=== PATIENT | female | born 1990 | race Caucasian/White ===

== ENCOUNTER 2021-07-24 15:31 | Emergency (ER) | payer BC, SELFPAY ==
--- NOTE | 2021-07-24 16:05 | USR_ITS ---
PROCEDURE INFORMATION: Exam: US Duplex Left Lower Extremity Veins, Limited Exam date and time: 07/24/2021 4:15 PM Age: 30 years old Clinical indication: Pain; Leg, lower; Left; Patient HX: Bariatric surgery this week and this first day out walking; Additional info: Pain/swelling TECHNIQUE: Imaging protocol: Real-time Duplex ultrasound of the Left Lower Extremity with 2-D martinez scale, color Doppler flow and spectral waveform analysis with image documentation. Limited exam focused on the left lower extremity veins. [place] [facility] [place] 2:35 PM FINDINGS: Left deep veins: Unremarkable. The common femoral, femoral, proximal profunda femoral and popliteal veins are patent without thrombus. Normal Doppler waveforms. Normal compressibility and/or augmentation response. Left superficial veins: Unremarkable. Saphenofemoral junction is patent without thrombus. Soft tissues: Unremarkable. US/[place] [id number] IMPRESSION: No evidence of deep vein thrombosis.
[2021-07-24 16:26] VITALS: BP 125/85; PULSE 103; RESP 18; TEMP 36.7; O2SAT 97; BMI 34.2
--- NOTE | 2021-07-24 17:16 | W.ED.EXTPRO ---
HPI - Extremity Problem General: Chief complaint: Extremity Injury, Lower Stated complaint: poss bloodclot in left leg Time Seen by Provider: 07/24/21 16:41 History of Present Illness: Patient complains about left calf pain that started today. Denies any known injury. Denies any swelling fever chills or recent illness. Associated symptoms: Deny chest pain, fever(s) or rash Review of Systems Const: Denies: fever(s), chills or body aches Eyes: Denies: eye discomfort ENMT: Denies: throat pain Card: Denies: chest pain Resp: Denies: dyspnea GI: Denies: abdominal pain, nausea or vomiting Musc: Reports: extremity pain (Left calf started hurting today) Skin/Breast: Denies: rash Neuro: Denies: headache(s) Psych: Denies: depression or suicidal ideation PFSH ED PFSH: Medical History Anxiety Diabetes Family history of ischemic heart disease and other diseases of the circulatory system GERD (gastroesophageal reflux disease) Hypertension Family History Other CAD (coronary artery disease) Hyperlipidemia Hypertension Myocardial infarction Stroke Social History Smoking and tobacco status: never smoked Alcohol intake: current Alcohol intake frequency: holidays/special occasions only Female Reproductive History: Date of last menstrual period: 06/26/21 Physical Exam Const: COMMON NORMALS: no acute distress, patient oriented x3 and alert HENMT: COMMON NORMALS: normocephalic HEAD & SCALP: normocephalic Eye: COMMON NORMALS: EOMs intact bilaterally Neck/C-Spine: COMMON NORMALS: no JVD Resp: COMMON NORMALS: normal respiratory effort and No use of accessory muscles Cardio: COMMON NORMALS: no JVD GI: INSPECTION: Yes normal to inspection Extremity: COMMON NORMALS: normal to inspection and full ROM LEFT LOWER EXTREMITY: Yes lower leg (Redness or swelling, negative Homans, mild tenderness gastrocnemius) Left lower leg: Yes neurovascular exam (Intact) Neuro: COMMON NORMALS: patient oriented x3 SENSORIUM/ORIENTATION: Yes alert Psych: COMMON NORMALS: mental status grossly normal Skin: COMMON NORMALS: no rashes or lesions noted GENERAL SKIN EXAM: no rashes or lesions noted Course Vital Signs: Vital signs: Vital Signs Temperature 98.1 F 07/24/21 16:26 Pulse Rate 67 07/24/21 17:30 Respiratory Rate 20 H 07/24/21 17:30 Blood Pressure 112/74 07/24/21 17:30 Pulse Oximetry 97 07/24/21 16:26 MDM - Extremity (Nontraumatic) Medical Decision Making Left calf muscle strain Lab Data Radiology Impressions Venous Duplex 07/24/21 16:05 IMPRESSION: No evidence of deep vein thrombosis. Discharge Plan Discharge Patient Disposition: Home Clinical Impression: Pain of left calf Condition: Stable Prescriptions: No Action losartan-hydrochlorothiazide 100-25 mg tablet 1 tab PO DAILY 0RF carvedilol phosphate 40 mg capsule, ER multiphase 24 hr 40 mg PO DAILY 0RF Label Comments: TAKEN WITH 20 MG CAPSULE FOR TOTAL OF 60 MG DAILY Rx Instructions: must administer with a meal/food carvedilol phosphate 20 mg capsule, ER multiphase 24 hr 20 mg PO DAILY 0RF Label Comments: TAKEN WITH 40 MG CAPSULE FOR TOTAL OF 60 MG DAILY Rx Instructions: must administer with a meal/food escitalopram oxalate [Lexapro] 10 mg tablet 10 mg PO DAILY 0RF metformin 500 mg tablet 1,000 mg PO BID 0RF Ozempic 0.25 mg or 0.5 mg(2 mg/1.5 mL) pen injector SUBCUT 0RF atorvastatin 20 mg tablet 20 mg PO DAILY Qty: 90 2RF Discharge Orders: Discharge ED (Routine); Ordered 07/24/21 Ordered By: Jeremiah Guerra Referrals: Safia Michele FNP [Primary Care Provider] - Discharge Diet: Usual diet Discharge Activity: Resume usual activity Activity Restrictions/Additional Instructions: Follow-up your primary care return here if any worsening problems. Apply moist heat to the calf as needed. Can take Tylenol and/or ibuprofen for discomfort. 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
[2021-07-24 17:30] VITALS: BP 112/74; PULSE 67; RESP 20
== END 2021-07-24 17:32 | disposition home or self-care (01) ==
PROVIDERS: Emergency Provider Nurse Practitioner Family; PCP Nurse Practitioner Family
DX: M79.662 Pain in left lower leg (principal); Z79.84 Long term (current) use of oral hypoglycemic drugs
CPT/HCPCS: 93971; 99282

== ENCOUNTER 2022-01-28 16:15 | Outpatient (CLI) | payer BC, SELFPAY | END 2022-01-28 16:16 | disposition home or self-care (01) | LOC: SPT 16:16 | PROVIDERS: PCP Nurse Practitioner Family; Visit Provider Podiatrist Foot & Ankle Surgery | DX: Z46.89 Encounter for fitting and adjustment of other specified devices (principal); S82.892D Other fracture of left lower leg, subsequent encounter for closed fracture with routine healing; X58.XXXD Exposure to other specified factors, subsequent encounter | CPT/HCPCS: 97760; L4361 ==

== ENCOUNTER 2022-02-01 10:21 | Day surgery (SDC) | payer BC, SELFPAY ==
[2022-01-29 11:20] VITALS: BMI 28.3
[2022-02-01] VITALS (9 sets, daily range): BP systolic 116–187; BP diastolic 78–91; PULSE 80–108; RESP 15–18; TEMP 36.3–37.1; O2SAT 98–100
--- NOTE | 2022-02-01 | XR_ITS ---
WS: [id number] INTRAOPERATIVE TECHNIQUE: 2 Spot fluoroscopic images for intraoperative purposes. FLUOROSCOPY TIME: ? seconds CLINICAL INFORMATION: orif of ankle COMPARISON: None. FINDINGS: Screw fixation across the medial malleolus. Hardware appears in good position. XR/XR ankle LT 2V [id number] IMPRESSION: Images obtained for intraoperative purposes.
--- NOTE | 2022-02-01 | SCC_ITS ---
Procedure done: Open reduction internal fixation left medial malleolus fracture. CPT code 58265. 11 seconds of fluoroscopic guidance, for a cumulative dose of 0.346 mGy, was provided to Dr. Ramirez by the radiology department. C-arm images of the left ankle were saved for the patient's permanent record. [facility]
[2022-02-01 11:14] LABS: Glucose Point of Care 95 mg/dL (70-110)
[2022-02-01] MEDS: sodium chloride 0.9% 1,000 ML 30 ML IV (11:30)
--- NOTE | 2022-02-01 11:41 | ANES.PREANE2 ---
Pre-Anesthetic Assessment Height/Weight: Height 1.65 m Weight 77.111 kg Temp Pulse Resp BP Pulse Ox O2 Del Method 98.7 F 80 18 116/83 98 02/01/22 11:25 02/01/22 11:25 02/01/22 11:25 02/01/22 11:25 02/01/22 11:25 02/01/22 11:25 Preop Diagnosis: Left medial malleolus fracture Operation Date: 02/01/22 12:00 Proposed Procedures p 56442 Open reduction internal fixation left medial malleolus S82.52XA(Left) - Lucas Ramirez DPM Familial anesthetic complications: None Was Beta Guicho taken within 24 hours: Yes Was Clonidine taken within 24 hours: N/A Last intake: Intake Last Liquid Date 01/31/22 Last Liquid Time 11: Last Solid Date 01/31/22 Last Solid Time : Social No alcohol and No tobacco Exam alert, oriented x 3, clear to auscultation bilaterally and regular rate & rhythm Airway Mallampati: Class I Dentition: full CV/HEM Hypertension GI Gastroesophageal Reflux Disease s/p gastric bypass Metabolic Diabetes Mellitus improved since weight loss surgery Anesthetic Plan ASA status: 2 Anesthesia: General and Regional (specify below) Risk of > 500 ml blood loss (7ml/kg in children): No Medications/Allergies Home Medications Medication Instructions Recorded Confirmed Last Taken Type carvedilol phosphate 20 mg 20 mg PO DAILY 03/03/20 02/01/22 01/31/22 History capsule,[email or web address] multiphase carvedilol phosphate 40 mg 40 mg PO DAILY 03/03/20 02/01/22 01/31/22 History capsule,[email or web address] multiphase escitalopram oxalate 10 mg tablet 10 mg PO DAILY 03/03/20 02/01/22 01/30/22 History (Lexapro) losartan 100 1 tab PO DAILY 03/03/20 02/01/22 01/30/22 History mg-hydrochlorothiazide 25 mg tablet metformin 500 mg tablet 1,000 mg PO BID 03/03/20 02/01/22 01/31/22 History atorvastatin 20 mg tablet 20 mg PO DAILY #90 tabs 08/06/21 02/01/22 01/31/22 Rx CAM boot #1 ea 01/28/22 01/28/22 Unknown Rx mupirocin 2 % topical ointment 1 applic topical BID #15 grams 01/28/22 02/01/22 01/31/22 Rx oxycodone-acetaminophen 5 mg-325 1 tab PO Q4H PRN pain 7 days #20 01/28/22 02/01/22 02/01/22 Rx mg tablet (Percocet) tabs Allergies Allergy/AdvReac Type Severity Reaction Status Date / Time hydromorphone [From Dilaudid] AdvReac ADR-Abdominal Verified 01/29/22 11:19 Pain meperidine [From Demerol] AdvReac ADR-Abdominal Verified 01/29/22 11:19 Pain naproxen AdvReac ADR-Abdominal Verified 01/29/22 11:19 Pain PFSH Anesthesia Medical History Anxiety Diabetes Family history of ischemic heart disease and other diseases of the circulatory system GERD (gastroesophageal reflux disease) Hypertension Family History Other CAD (coronary artery disease) Hyperlipidemia Hypertension Myocardial infarction Stroke Social History Smoking and tobacco status: never smoked Alcohol intake: current Alcohol intake frequency: holidays/special occasions only Female Reproductive History Date of last menstrual period: 06/26/21 Data Anesthesia Cardiac Studies: Cardiac Event Monitor 03/17/20
[2022-02-01 11:42] LABS: OR HCG Qualitative Urine Negative (Negative)
--- NOTE | 2022-02-01 11:57 | W.PM.OPSUD ---
Surgery/Procedure H&P Update DATE OF PROCEDURE: February 01, 2022 DATE H&P PERFORMED: 01/28/22 CHANGES TO PREVIOUS DOCUMENTATION: None PREOP DIAGNOSIS: Left medial malleolus fracture PRIMARY INDICATION FOR PROCEDURE: Left medial malleolus fracture PLANNED PROCEDURE: Operation Date: 02/01/22 12:00 Proposed Procedures p 89048 Open reduction internal fixation left medial malleolus S82.52XA(Left) - Lucas Ramirez DPM
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
[2022-02-01] MEDS: ceFAZolin 2,000 MG in sodium chloride 0.9% (plus) 50 ML 100 MG IV (12:15)
--- NOTE | 2022-02-01 12:33 | ANES.PROC ---
Anesthesia Procedures Procedure/Date: 02/01/22 Nerve Block ^: Nerve Block 1: Main Anesthesia: general anesthesia Time Out Performed: Yes Consent: requested by attending/covering physician, from patient, risks and benefits reviewed and patient agrees to proceed Nerve block location: popliteal (L) Anesthesia monitors applied: pulse oximetry, EKG, BP cuff and oxygen Nerve block position: supine Anesthetic Used: ropivicaine 0.5% (30) and with decadron (4 mg) Ultrasound used to: recognize landmarks Nerve Stimulator Used?: No Interscalene/Femoral BLK: 4 stimuplex 21 g needle used for position and inplane approach, visualize local anesthetic spread and no vascular puncture identified Injection: neg aspiration of heme and paresthesia +/- (parasthesia experienced several times - injection halted, needle repositioned, resumed without parasthesia) Patient Tolerated Procedure: well Complications: none
--- NOTE | 2022-02-01 13:51 | ANE.PACU2 ---
Inpatient post-anesthesia follow up: Airway intact: Yes Vital signs: Temperature 97.3 F Pulse Rate 100 Respiratory Rate 18 Blood Pressure 177/89 Pulse Oximetry 98 Oxygen Delivery Me thod Room Air Oxygen Flow Rate 6 Fraction of Inspir ed Oxygen Hydration adequate: Yes Nausea and vomiting: No Pain level: 1 Mental status: Baseline
[2022-02-01] MEDS: oxyCODONE-APAP 10-325 mg Tablet 1 TAB PO (14:34)
== END 2022-02-01 14:35 | disposition home or self-care (01) ==
PROVIDERS: Anesthesiology; PCP Nurse Practitioner Family; Visit Provider Podiatrist Foot & Ankle Surgery
PROC: (CPT 27766; principal; 2022-02-01 12:00)
DX: S82.52XA Displaced fracture of medial malleolus of left tibia, initial encounter for closed fracture (principal); X58.XXXA Exposure to other specified factors, initial encounter; I10 Essential (primary) hypertension; K21.9 Gastro-esophageal reflux disease without esophagitis; Z98.84 Bariatric surgery status; E11.9 Type 2 diabetes mellitus without complications; F41.9 Anxiety disorder, unspecified; Z79.84 Long term (current) use of oral hypoglycemic drugs
CPT/HCPCS: 27766; 36416; 73600; 76000; 81025; 82962; 84703; C1713; J0690; J1100; J2250; J2405; J2704; J2795; J3010; J3490; J7030

== ENCOUNTER → 2022-02-11 13:47 | Outpatient (BNVA) | payer BC, SELFPAY | PROVIDERS: PCP Nurse Practitioner Family; Visit Provider Podiatrist Foot & Ankle Surgery | DX: S82.892D Other fracture of left lower leg, subsequent encounter for closed fracture with routine healing (principal); S82.52XD Displaced fracture of medial malleolus of left tibia, subsequent encounter for closed fracture with routine healing; X58.XXXD Exposure to other specified factors, subsequent encounter; R20.0 Anesthesia of skin | CPT/HCPCS: 73610 ==

== ENCOUNTER → 2022-03-11 14:36 | Outpatient (BNVA) | payer BC, SELFPAY | PROVIDERS: PCP Nurse Practitioner Family; Visit Provider Student in an Organized Health Care Education/Training Program | DX: S54.00XD Injury of ulnar nerve at forearm level, unspecified arm, subsequent encounter (principal); Z98.890 Other specified postprocedural states; S82.52XD Displaced fracture of medial malleolus of left tibia, subsequent encounter for closed fracture with routine healing; S82.892D Other fracture of left lower leg, subsequent encounter for closed fracture with routine healing; X58.XXXD Exposure to other specified factors, subsequent encounter | CPT/HCPCS: 73030; 73610 ==

== ENCOUNTER → 2022-04-01 13:01 | Outpatient (BNVA) | payer BC, SELFPAY | PROVIDERS: PCP Nurse Practitioner Family; Visit Provider Podiatrist Foot & Ankle Surgery | DX: Z98.890 Other specified postprocedural states (principal); S82.892D Other fracture of left lower leg, subsequent encounter for closed fracture with routine healing; S82.52XD Displaced fracture of medial malleolus of left tibia, subsequent encounter for closed fracture with routine healing; X58.XXXD Exposure to other specified factors, subsequent encounter | CPT/HCPCS: 73610 ==

== ENCOUNTER → 2022-04-15 15:36 | Outpatient (BNVA) | payer BC, SELFPAY | PROVIDERS: PCP Nurse Practitioner Family; Visit Provider Podiatrist Foot & Ankle Surgery | DX: Z98.890 Other specified postprocedural states (principal); S82.892D Other fracture of left lower leg, subsequent encounter for closed fracture with routine healing; S82.52XD Displaced fracture of medial malleolus of left tibia, subsequent encounter for closed fracture with routine healing; X58.XXXD Exposure to other specified factors, subsequent encounter | CPT/HCPCS: 73610 ==

== ENCOUNTER 2022-04-15 16:04 | Outpatient (CLI) | payer BC, SELFPAY | END 2022-04-15 16:05 | disposition home or self-care (01) | LOC: SPT 16:04 | PROVIDERS: PCP Nurse Practitioner Family; Visit Provider Podiatrist Foot & Ankle Surgery | DX: Z47.89 Encounter for other orthopedic aftercare (principal) | CPT/HCPCS: 97760; L1902 ==

== ENCOUNTER → 2022-05-06 15:31 | Outpatient (BNVA) | payer BC, SELFPAY | PROVIDERS: PCP Nurse Practitioner Family; Visit Provider Podiatrist Foot & Ankle Surgery | DX: S82.892D Other fracture of left lower leg, subsequent encounter for closed fracture with routine healing (principal); S82.52XD Displaced fracture of medial malleolus of left tibia, subsequent encounter for closed fracture with routine healing; X58.XXXD Exposure to other specified factors, subsequent encounter | CPT/HCPCS: 73610 ==

== ENCOUNTER → 2022-06-10 14:05 | Outpatient (BNVA) | payer BC, SELFPAY | PROVIDERS: PCP Nurse Practitioner Family; Visit Provider Podiatrist Foot & Ankle Surgery | DX: S82.892A Other fracture of left lower leg, initial encounter for closed fracture (principal); X58.XXXA Exposure to other specified factors, initial encounter | CPT/HCPCS: 73610 ==

== ENCOUNTER 2022-10-29 14:31 | Outpatient (CLI) | payer BC, SELFPAY ==
--- NOTE | 2022-10-29 14:53 | US_ITS ---
WS: [id number] US pelv w/transvag [id number] HISTORY: PELVIC PERINEAL PAIN COMPARISON: 10/02/2018 Uterus: 7.0 cm x 4.8 cm x 4.6 cm. Normal size retroverted uterus. No fibroid or mass identified. Endometrium: 0.6 cm. Normal. Right ovary: 2.5 cm x 1.8 cm x 2.4 cm. Normal size and vascularity, no cystic or solid masses. Small follicles. Left ovary: 3.0 cm x 2.2 cm x 1.6 cm. Normal size and vascularity, no cystic or solid masses. Small f ollicles. Physiologic free fluid in the cul-de-sac. US/US pelv w/transvag [id number] IMPRESSION: Normal pelvic ultrasound.
== END 2022-10-29 14:32 | disposition home or self-care (01) ==
PROVIDERS: PCP Nurse Practitioner Family; Visit Provider Advanced Practice Midwife
DX: R10.2 Pelvic and perineal pain (principal)
CPT/HCPCS: 76830; 76856

== ENCOUNTER 2023-03-23 07:45 | Outpatient (CLI) | payer BC, SELFPAY ==
--- NOTE | 2023-03-23 08:00 | USCV_ITS ---
Jenn Fernandes Age: 32 Gender: F : 1990 Exam Date: 03/23/2023 08:09 Ordering Phys: Ana Rico MD ([email or web address]) Technologist: MARCO [place] [facility] [place]: PVCS, CHEST PAIN BP: 136 / 91 HR: 71 Rhythm: Sinus Technical Quality: Adequate MEASUREMENTS (Male / Female) Normal Values 2D ECHO LVOT Diameter 2.0 cm LV Ejection Fraction MOD 2C 68.5 % LV Ejection Fraction 2C AL 68.9 % LA Diameter 2.5 cm LA Width 2.9 cm LA Height 3.9 cm RA Width 2.2 cm RA Height 3.6 cm Aorta at Sinotubular Diameter 1.6 cm IVC Diameter 1.8 cm M-MODE Aortic Annulus Diameter 3.1 cm LA Ao Ratio MM 0.7 MV E Point Septal Separation 0.7 cm DOPPLER AV Peak Velocity 133.0 cm/s LVOT Peak Velocity 105.0 cm/s AV Area Cont Eq vti 2.4 cm squared AV Area Cont Eq pk 2.4 cm squared MV Peak Velocity 94.0 cm/s MV Area PHT 4.2 cm squared Mitral E to A Ratio 1.5 MV E' Velocity 57.0 cm/s Mitral E to MV E' Ratio 7.2 Mitral E to LV E' Lateral Ratio 6.6 Mitral E to LV E' Septal Ratio 7.9 TR Peak Velocity 135.8 cm/s TR Peak Gradient 7.4 mmHg TR Mean Velocity 109.0 cm/s TR Mean Gradient 5.0 mmHg TR Velocity Time Integral 35.0 cm TV Peak E Velocity 56.0 cm/s Right Atrial Pressure 3.0 mmHg Pulmonary Artery Systolic Pressu 10.4 mmHg PV Peak Velocity 93.0 cm/s RV Acceleration Time 0.1 s RV Ejection Time 0.3 s RV AcT/ET 0.4 FINDINGS Left Ventricle Normal left ventricular size, systolic function and wall thickness, with no regional wall motion abnormalities. Left ventricular ejection fraction is estimated at 65 %. Normal diastolic function. Right Ventricle Normal right ventricular size and systolic function. Right ventricular systolic pressure 10.4 mmHg. Right Atrium Normal right atrial size. Left Atrium Normal left atrial size. Mitral Valve Structurally normal mitral valve. No mitral valve stenosis. No mitral valve regurgitation. Aortic Valve Structurally normal trileaflet aortic valve. No aortic valve stenosis. No aortic valve regurgitation. Tricuspid Valve Structurally normal tricuspid valve. No tricuspid valve stenosis. Trace tricuspid valve regurgitation. Pulmonic Valve Pulmonic valve not well visualized. Pericardium No pericardial effusion. Aorta Normal size aortic root and proximal ascending aorta. IVC Normal IVC dimension with >50% respiratory change of the inferior vena cava. CONCLUSIONS 1. Normal left ventricular size, systolic function and wall thickness, with no regional wall motion abnormalities. Left ventricular ejection fraction is estimated at 65 %. Normal diastolic function. 2. No significant valvular abnormalities. 3. No significant change when compared to study dated 01/03/2015. Ana Rico MD (Electronically Signed) Final Date: 23 March 2023 22:37 S
== END 2023-03-23 07:46 | disposition home or self-care (01) ==
LOC: RAD 07:45
PROVIDERS: PCP Nurse Practitioner Family; Visit Provider Internal Medicine Cardiovascular Disease
DX: Z82.49 Family history of ischemic heart disease and other diseases of the circulatory system (principal); R00.2 Palpitations
CPT/HCPCS: 93306

== ENCOUNTER 2023-12-26 13:34 | Emergency (ER) | payer BC, SELFPAY ==
[2023-12-26 13:42] VITALS: BP 124/86; PULSE 95; RESP 15; TEMP 36.9; O2SAT 99; BMI 24.7
[2023-12-26 16:12] LABS: Basophils # 0.1 10^3/uL (0.0-0.1); Basophils % 0.8 %; Eosinophils # 0.1 10^3/uL (0.0-0.8); Eosinophils % 1.8 %; Hematocrit 45.9 % (36-47); Lymphocytes # 1.8 10^3/uL (0.8-4.8); Lymphocytes % 26.8 %; Mean Corpuscular Hemoglobin 29.8 pg (27-33); Mean Corpuscular Volume 87.8 fl (85-98); Mean Platelet Volume 10.6 fL (7.4-10.4); Monocytes # 0.8 10^3/uL (0.2-0.9); Monocytes % 12.3 %; Neutrophils # 3.79 10^3/uL (1.8-7.7); Neutrophils % 58.1 %; Nucleated Red Blood Cells % 0 %; Platelet Count 322 10^3/cmm (157-399); Red Blood Count 5.23 10^6/uL (3.85-5.65); Red Cell Distribution Width 12.4 % (12.1-15.1); White Blood Count 6.52 10^3/uL (3.29-11.43)
[2023-12-26 16:28] LABS: HCG, Serum Qual Negative (Negative)
[2023-12-26 16:37] LABS: Alanine Aminotransferase 17 U/L (0-33); Albumin Level 4.2 g/dL (3.5-5.2); Alkaline Phosphatase 122 U/L (35-105); Anion Gap 16.9 (5-19); Aspartate Amino Transferase 15 U/L (0-32); Blood Urea Nitrogen 11 mg/dL (6-20); Calcium 9.1 mg/dL (8.5-10.5); Carbon Dioxide 20 mmol/L (22-29); Chloride 107 mmol/L (98-107); Creatinine Clr Calc Pharmacy 126.5077; Globulin 3.4 g/dL (1.3-4.6); Glomerular Filtration Rate 113.8 mL/min (90-130); Glucose 113 mg/dL (65-115); Lipase 20 U/L (13-60); Osmolality Calculated 290 mOsm/kg (285-295); Potassium 3.9 mmol/L (3.5-5.1); Sodium 140 mmol/L (136-145); Total Bilirubin 1.2 mg/dL (0.15-1.2); Total Protein 7.6 g/dL (6.6-8.7)
--- NOTE | 2023-12-26 19:03 | ED_ITS ---
HPI - Nausea/Vomiting/Diarrhea 2 General: Chief complaint: Nausea/Vomiting/Diarrhea Stated complaint: dehydrated Time Seen by Provider: 12/26/23 18:42 History of Present Illness: 33-year-old female presents emergency ro om with diarrhea for several days now. She is also had some nausea. No vomiting. She thinks may be related to stress with a separation from her . She says she feels dehydrated and weak. No abdominal pain. No chest pain. No shortness of breath. No altered mental status. No fevers. Related Data Home Medications Medication Instructions Recorded Confirmed semaglutide 0.25 mg or 0.5 mg (2 mg SUBCUT 07/17/23 10/20/23 mg/3 mL) subcutaneous pen injector (OzempFrankly Chat) metoprolol tartrate 25 mg tablet 25 mg PO BID 10/20/23 10/20/23 Previous Rx's Medication Instructions Recorded CAM boot #1 ea 01/28/22 ASO to the Left #1 ea 04/15/22 amoxicillin 875 mg-potassium 1 tab PO BID 10 days #20 tabs 07/17/23 clavulanate 125 mg tablet fluticasone propionate 50 2 spray intranasal DAILY PRN 07/17/23 mcg/actuation nasal allergy symptoms #16 grams spray,suspension (Flonase Allergy Relief) cephalexin 500 mg capsule 500 mg PO TID 5 days #15 caps 12/26/23 lorazepam 0.5 mg tablet (Ativan) 0.5 mg PO DAILY PRN anxiety #14 12/26/23 tabs ondansetron 8 mg disintegrating 8 mg PO Q6H #14 tabs 12/26/23 tablet Allergies Allergy/AdvReac Type Severity Reaction Status Date / Time hydromorphone [From Dilaudid] AdvReac ADR-Abdominal Verified 10/20/23 10:03 Pain meperidine [From Demerol] AdvReac ADR-Abdominal Verified 10/20/23 10:03 Pain naproxen AdvReac ADR-Abdominal Verified 10/20/23 10:03 Pain Review of Systems 2 Narrative: Constitutional symptoms: Negative except as documented in HPI. Skin symptoms: Negative except as documented in HPI. Eye symptoms: Negative except as documented in HPI. ENMT symptoms: Negative except as documented in HPI. Respiratory symptoms: Negative except as documented in HPI. Cardiovascular symptoms: Negative except as documented in HPI. Gastrointestinal symptoms: Negative except as documented in HPI. Genitourinary symptoms: Negative except as documented in HPI. Musculoskeletal symptoms: Negative except as documented in HPI. Neurologic symptoms: Negative except as documented in HPI. Psychiatric symptoms: Negative except as documented in HPI. Endocrine symptoms: Negative except as documented in HPI. PFSH ED 2 PFSH: Medical History Ulnar nerve injury Left elbow pain Family history of ischemic heart disease and other diseases of the circulatory system Hypertension Diabetes Anxiety GERD (gastroesophageal reflux disease) Family History Other CAD (coronary artery disease) Hyperlipidemia Hypertension Myocardial infarction Stroke Social History Smoking and tobacco/nicotine status: never used tobacco/nicotine Alcohol intake: current Alcohol intake frequency: holidays/special occasions only Substance/Drug Use: never Physical Exam 2 Narrative: EXAM NARRATIVE: General: Alert, no acute distress. Skin: Warm, dry. Head: Normocephalic, atraumatic. Neck: Supple, trachea midline. Eye: Extraocular movements are intact. Ears, nose, mouth and throat: Tacky oral mucosa Cardiovascular: Regular, Normal peripheral perfusion. Respiratory: Lungs are clear to auscultation, respirations are non-labored, breath sounds are equal, Symmetrical chest wall expansion. Gastrointestinal: Soft, Nontender, Non distended Musculoskeletal: Normal ROM, no deformity. Neurological: Alert and oriented, No focal neurological deficit observed. Psychiatric: Cooperative, appropriate mood & affect. Course 2 Vital Signs: Vital signs: Vital Signs Temperature 98.4 F 12/26/23 13:42 Pulse Rate 90 12/26/23 19:06 Respiratory Rate 16 12/26/23 19:06 Blood Pressure 160/96 12/26/23 19:06 Pulse Oximetry 98 12/26/23 19:06 Oxygen Delivery Me thod Room Air 12/26/23 13:42 MDM - Nausea/Vomiting/Diarrhea Medical Decision Making Lab Review: Laboratory results were reviewed and interpreted by myself the emergency room physician. No leukocytosis. No anemia. No renal failure. BUN and creatinine are 11 and 0.6. test negative. Urinalysis shows infection. Also very concentrated reinforcing that she is quite dehydrated. I reviewed the patient's medical record. Reexamination: Patient remained stable. No increased work of breathing. No altered mental status. No focal motor deficits. Assessment and plan: Diarrhea Dehydration Anxiety Urinary tract infection ?IV Rocephin ?Fluids, Zofran and Ativan - Discharged home - Discussed plan with patient. Answered any questions. - Evaluation and treatment of this problem were appropriate in the emergency setting. Lab Data 12/26/23 15:45 12/26/23 15:45 Laboratory Results WBC 6.52 10^3/uL (3.29-11.43) 12/26/23 15:45 RBC 5.23 10^6/uL (3.85-5.65) 12/26/23 15:45 Hgb 15.60 g/dL (11.27-16.99) 12/26/23 15:45 Hct 45.9 % (36-47) 12/26/23 15:45 MCV 87.8 fl (85-98) 12/26/23 15:45 MCH 29.8 pg (27-33) 12/26/23 15:45 MCHC 34.0 g/dL (30-55) 12/26/23 15:45 RDW 12.4 % (12.1-15.1) 12/26/23 15:45 Plt Count 322 10^3/cmm (157-399) 12/26/23 15:45 MPV 10.6 fL (7.4-10.4) H 12/26/23 15:45 Neut % (Auto) 58.1 % 12/26/23 15:45 Lymph % (Auto) 26.8 % 12/26/23 15:45 [place] % (Auto) 12.3 % 12/26/23 15:45 Eos % (Auto) 1.8 % 12/26/23 15:45 Baso % (Auto) 0.8 % 12/26/23 15:45 Neut # (Auto) 3.79 10^3/uL (1.8-7.7) 12/26/23 15:45 Lymph # (Auto) 1.8 10^3/uL (0.8-4.8) 12/26/23 15:45 [place] # (Auto) 0.8 10^3/uL (0.2-0.9) 12/26/23 15:45 Eos # (Auto) 0.1 10^3/uL (0.0-0.8) 12/26/23 15:45 Baso # (Auto) 0.1 10^3/uL (0.0-0.1) 12/26/23 15:45 Nucleated RBC % (auto) 0 % 12/26/23 15:45 Nucleated RBCs # 0.0 /100WBC 12/26/23 15:45 Sodium 140 mmol/L (136-145) 12/26/23 15:45 Potassium 3.9 mmol/L (3.5-5.1) 12/26/23 15:45 Chloride 107 mmol/L (98-107) 12/26/23 15:45 Carbon Dioxide 20 mmol/L (22-29) L 12/26/23 15:45 Anion Gap 16.9 (5-19) 12/26/23 15:45 BUN 11 mg/dL (6-20) 12/26/23 15:45 Creatinine 0.6 mg/dL (0.5-0.9) 12/26/23 15:45 GFR Calculation 113.8 mL/min (90-130) 12/26/23 15:45 Glucose 113 mg/dL (65-115) 12/26/23 15:45 Calculated Osmolality 290 mOsm/kg (285-295) 12/26/23 15:45 Calcium 9.1 mg/dL (8.5-10.5) 12/26/23 15:45 Total Bilirubin 1.2 mg/dL (0.15-1.2) 12/26/23 15:45 AST 15 U/L (0-32) 12/26/23 15:45 ALT 17 U/L (0-33) 12/26/23 15:45 Alkaline Phosphatase 122 U/L (35-105) H 12/26/23 15:45 Total Protein 7.6 g/dL (6.6-8.7) 12/26/23 15:45 Albumin 4.2 g/dL (3.5-5.2) 12/26/23 15:45 Globulin 3.4 g/dL (1.3-4.6) 12/26/23 15:45 Lipase 20 U/L (13-60) 12/26/23 15:45 HCG, Qual Negative (Negative) 12/26/23 15:45 Urine Color Dark yellow (Yellow) A 12/26/23 19:00 Urine Appearance Cloudy (CLEAR) A 12/26/23 19:00 Urine pH 5.5 (5-7) 12/26/23 19:00 Ur Specific [place] 1.033 (1.005-1.030) H 12/26/23 19:00 Urine Protein 2+ (Negative) A 12/26/23 19:00 Urine Glucose (UA) Negative (Normal) 12/26/23 19:00 Urine Ketones Trace (Negative) 12/26/23 19:00 Urine Blood 3+ (Negative) A 12/26/23 19:00 Urine Nitrate Negative (Negative) 12/26/23 19:00 Urine Bilirubin 1+ (Negative) H 12/26/23 19:00 Urine Urobilinogen 1.0 mg/dL (Negative) 12/26/23 19:00 Ur Leukocyte Esterase Negative (Negative) 12/26/23 19:00 Urine RBC 21-50 /hpf (0-2) H 12/26/23 19:00 Urine WBC 11-20 /hpf (0-5) H 12/26/23 19:00 Ur Squamous Epith Cells 11-20 /hpf (0-5) 12/26/23 19:00 Amorphous Sediment Not Reportable 12/26/23 19:00 Urine Bacteria None seen /hpf (NONE) 12/26/23 19:00 Hyaline Casts 37.64 /lpf 12/26/23 19:00 Fine Granular Casts 5-10 /lpf H 12/26/23 19:00 Coarse Granular Casts 0-4 /lpf H 12/26/23 19:00 Urine Mucus 3+ /hpf 12/26/23 19:00 No radiology studies performed this visit Discharge Plan Discharge Patient Disposition: Home Clinical Impression: Dehydration, Anxiety, Diarrhea, Urinary tract infection Condition: Stable Prescriptions: New Ativan 0.5 mg tablet 0.5 mg PO DAILY PRN (Reason: anxiety) Qty: 14 0RF ondansetron 8 mg tablet,disintegrating 8 mg PO Q6H Qty: 14 0RF Rx Instructions: Take 1/2-1 tab every 6 hours as needed for nausea and vomiting cephalexin 500 mg capsule 500 mg PO TID 5 Days Qty: 15 0RF No Action Ozempic 0.25 mg or 0.5 mg (2 mg/3 mL) pen injector SUBCUT fluticasone propionate [Flonase Allergy Relief] 50 mcg/actuation spray,suspension 2 spray intranasal DAILY PRN (Reason: allergy symptoms) Qty: 16 0RF Rx Instructions: administer into each nostril amoxicillin-pot clavulanate 875-125 mg tablet 1 tab PO BID 10 Days Qty: 20 0RF (DME) CAM boot See Rx Instructions .Route .MEDSUPPLY Qty: 1 0RF Rx Instructions: As directed (DME) ASO to the Left See Rx Instructions .Route .MEDSUPPLY Qty: 1 0RF Rx Instructions: As directed metoprolol tartrate 25 mg tablet 25 mg PO BID Discharge Orders: Discharge ED (Routine); Ordered 12/26/23 Ordered By: Zenaida You Referrals: Safia Michele FNP [Primary Care Provider] - Discharge Diet: Usual diet Discharge Activity: Resume usual activity Patient Instructions: Gastroenteritis (ED) Activity Restrictions/Additional Instructions: Thank you for choosing [facility] for your healthcare needs today. Please realize this is an emergency room and that we are providing you with a medical screening exam and this may not be complete and all inclusive of all the testing and or work up that you may need to determine your ailment or severity of your illness. You have been screened and evaluated and felt safe for discharge. Health conditions do change or evolve sometimes and as such it is important that you follow up with your Primary Doctor to be re checked, 3-5 days is a general good time frame for follow up. 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
[2023-12-26 19:06] VITALS: BP 160/96; PULSE 90; RESP 16; O2SAT 98
[2023-12-26 19:10] LABS: Bilirubin Urine 1+ (Negative); Blood Urine 3+ (Negative); Glucose Urine UA Negative (Normal); Ketones Urine Trace (Negative); Leukocyte Esterase Urine Negative (Negative); Nitrate Urine Negative (Negative); Protein Urine 2+ (Negative); Urine Appearance Cloudy (CLEAR); Urine Color Dark Yellow (Yellow); pH Urine 5.5 (5-7)
[2023-12-26 19:15] LABS: Add Urine Microscopic? YES; Bacteria Urine None Seen /hpf; Hyaline Casts Urine 37.64 /lpf; RBC Urine 21-50 /hpf (0-2)
[2023-12-26] MEDS: ondansetron 2 mg/ML SDV 2 mL 8 MG IVP (19:18)
[2023-12-26] MEDS: LORazepam 2 mg/mL INJ 1 mL 1 MG IVP (19:20)
[2023-12-26] MEDS: sodium chloride 0.9% 1,000 ML 999 ML IV (19:21)
[2023-12-26 19:26] LABS: Specific Gravity, Urine 1.033 (1.005-1.030)
[2023-12-26 19:27] LABS: Coarse Granular Casts Urine 0-4 /lpf; Mucus Urine 3+ /hpf
[2023-12-26 19:28] LABS: UA Slide Review UA Slide Review Perf
[2023-12-26 19:30] VITALS: PULSE 92; RESP 16; O2SAT 99
[2023-12-26 20:00] VITALS: BP 135/84; PULSE 80; RESP 16; O2SAT 100
[2023-12-26] MEDS: cefTRIAXone 1,000 mg SDV 1000 MG IVP (20:06)
[2023-12-26 21:11] VITALS: BP 135/84; PULSE 80; O2SAT 80
--- NOTE | 2023-12-27 09:36 | PC.NURSE ---
ABX not transmitted to [facility] pharmacy. prescription called into [facility] cephalexin 500mg po TIDx 5 days
== END 2023-12-26 20:25 | disposition home or self-care (01) ==
PROVIDERS: Physician Assistant; Emergency Provider Emergency Medicine; PCP Nurse Practitioner Family
DX: R19.7 Diarrhea, unspecified (principal); N39.0 Urinary tract infection, site not specified; E86.0 Dehydration; F41.9 Anxiety disorder, unspecified; Z79.85 Long-term (current) use of injectable non-insulin antidiabetic drugs; I10 Essential (primary) hypertension; E11.9 Type 2 diabetes mellitus without complications
CPT/HCPCS: 36415; 80053; 81001; 83690; 84703; 85025; 96374; 96375; 99284; J0696; J2060; J2405; J7030

== ENCOUNTER 2024-06-04 11:14 | Outpatient (CLI) | payer BC, SELFPAY ==
--- NOTE | 2024-06-04 11:24 | USCV_ITS ---
Brianradha Jenn Age: 33 Gender: F : 1990 Exam Date: 06/04/2024 11:34 Ordering Phys: Antonella Bryant MD Technologist: CT Exam Location: [facility] [place] Indication: BP: 135 / 86 HR: 73 Rhythm: Sinus Technical Quality: Adequate MEASUREMENTS (Male / Female) Normal Values 2D ECHO LVOT Diameter 1.1 cm LV Ejection Fraction MOD 4C 60.7 % LV Ejection Fraction MOD 2C 71.6 % LV Ejection Fraction 2C AL 72.5 % LA Diameter 3.3 cm RA Systolic Volume 4C AL 27.1 ml RA Systolic Volume 4C MOD 26.2 ml LA Sys Volume AL 46.6 cm cubed LA Sys Volume Index AL 25.0 cm cubed/m squared Aorta at Sinotubular Diameter 2.6 cm IVC Diameter 2.0 cm M-MODE LA Ao Ratio MM 1.2 AV Cusp Separation MM 2.0 cm DOPPLER AV Peak Velocity 115.0 cm/s LVOT Peak Velocity 91.0 cm/s AV Area Cont Eq vti 0.9 cm squared AV Area Cont Eq pk 0.8 cm squared MV Peak Velocity 92.0 cm/s MV Area PHT 4.4 cm squared Mitral E to A Ratio 1.6 TR Peak Velocity 224.0 cm/s TR Peak Gradient 20.1 mmHg TV Peak E Velocity 88.0 cm/s PV Peak Velocity 99.5 cm/s FINDINGS Left Ventricle Left ventricle is normal size. LV systolic function is normal with EF of 55 to 60%. No regional wall motion abnormalities are seen Right Ventricle Normal in size and function Right Atrium Normal in size Left Atrium Normal in size Mitral Valve Structurally normal mitral valve. Trace mitral regurgitation. Aortic Valve Structurally normal aortic valve. No significant stenosis. Tricuspid Valve Insufficient TR jet to calculate RVSP Pulmonic Valve Not well visualized Pericardium Grossly normal Aorta Normal in size IVC Appears to be normal CONCLUSIONS LV systolic function is normal with EF of 55-60% Trace mitral regurgitation Compared to prior echocardiogram from 2022, no significant changes are seen. Guillaume Londono MD (Electronically Signed) Final Date: 10 June 2024 10:29 S
== END 2024-06-04 11:15 | disposition home or self-care (01) ==
LOC: RAD 11:17
PROVIDERS: PCP Nurse Practitioner Family; Visit Provider Internal Medicine Interventional Cardiology
DX: R00.2 Palpitations (principal)
CPT/HCPCS: 93306

== ENCOUNTER 2024-06-19 09:42 | Outpatient (CLI) | payer BC, SELFPAY ==
--- NOTE | 2024-06-19 09:48 | MM_ITS ---
WS: [id number] BILATERAL DIAGNOSTIC DIGITAL BREAST MAMMOGRAPHY WITH RUSS DISPLACEMENT VIEWS. CAD PERFORMED. HISTORY: L BREAST LUMP 1CM 2 O'CLOCK COMPARISON: None available. Bilateral craniocaudal and mediolateral oblique views are performed with tomosynthesis and SM. Russ displacement views in CC and MLO projection also performed. Breasts composition: There are scattered areas of fibroglandular density. Triangular marker placed over the upper outer quadrant of the LEFT breast in the palpable area. There is no underlying mass identified or distortion. Normal appearance of the breast. No suspicious mass or calcification within either breast. Implants are intact. LEFT breast ultrasound, limited. Ultrasound directed to the palpable area. There is no underlying mass or distortion identified. No skin thickening. MM/MM diag BI tomosynthesis [id number] IMPRESSION: BI-RADS: 2 - Benign. FOLLOW-UP: Age 38 No mammographic or ultrasound abnormality noted within the LEFT breast at the [facility].
== END 2024-06-19 09:43 | disposition home or self-care (01) ==
LOC: RAD 09:44
PROVIDERS: PCP Nurse Practitioner Family; Visit Provider Advanced Practice Midwife
DX: N63.21 Unspecified lump in the left breast, upper outer quadrant (principal); R92.322 Mammographic fibroglandular density, left breast; Z98.82 Breast implant status
CPT/HCPCS: 76642; 77062; G0279

== ENCOUNTER 2024-07-02 17:58 | Emergency (ER) | payer BC, SELFPAY ==
[2024-07-02 18:02] VITALS: BP 164/96; PULSE 96; RESP 16; TEMP 36.6; O2SAT 98; BMI 26.9
--- NOTE | 2024-07-02 18:15 | ECG_ITS ---
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
--- NOTE | 2024-07-02 18:15 | XRR_ITS ---
PROCEDURE INFORMATION: Exam: XR Chest Exam date and time: 07/02/2024 6:22 PM Age: 33 years old Clinical indication: Other: Epigastric pain; PT had nipple rings in that dont come out; Additional info: Epigastric pain, SOB TECHNIQUE: Imaging protocol: Radiologic exam of the chest. Views: 1 view. COMPARISON: CR XR chest 1V [id number] 05/12/2018 1:23 PM FINDINGS: Lungs: Unremarkable. No consolidation. Pleural spaces: Unremarkable. No pleural effusion. No pneumothorax. Heart/Mediastinum: Unremarkable. No cardiomegaly. Bones/joints: Unremarkable. Soft tissues: Bilateral nipple rings. XR/XR chest 1V portable [id number] IMPRESSION: No acute findings.
--- NOTE | 2024-07-02 18:18 | ED_ITS ---
HPI - Abdominal Pain 2 General: Chief Complaint: Abdominal Pain Stated Complaint: Abd Pain to back\Hard to Breath Time Seen by Provider: 07/02/24 18:06 Source: patient Mode of arrival: ambulatory Limitations: no limitations History of Present Illness: Patient is a 33-year-old female with past medical history of hypertension, diabetes, and GERD who presents the emergency department with sudden onset epigastric abdominal pain beginning about 30 minutes prior to arrival. Patient states she was at work and just had recently finished carrying some heavy boxes, when she had the sudden onset of 10/10 pain that radiated directly through to her back and caused her to feel short of breath. At this time noting that it has eased up quite a bit, she states she can still sense that it is there but it is much less severe. She does note that she took some Tums with the pain. Of note, she does have history of cholecystectomy as well as gastric bypass procedure. Denies any known history of gastroparesis or pancreatitis. No prolonged history of ibuprofen or other NSAID use. No history of H. pylori infection. Denies any cardiac history. With the pain, she had no associated nausea/vomiting/diarrhea, urinary symptoms, lightheadedness or dizziness. She states that she felt somewhat clammy but does not remember completely. Other than mild elevation in her blood pressure, her vitals unremarkable at this time. Describes the pain as sharp and stabbing. Still has her appendix. MD elicited complaint: abdominal pain Pertinent past history: other (GERD, HTN, DM) Onset (ago): minute(s) Pain Consistency: now resolved Location: Epigastric Severity: severe Pain scale (0-10): 10 Quality: stabbing and sharp Radiation: back Exacerbating factors: nothing Relieving factors: medication (TUMS) Associated Symptoms: Denies bloating, change in stool character, chills, constipation, diarrhea, dysuria, fever(s), hematochezia, nausea and vomiting Related Data Home Medications ?Medication ?Instructions ?Recorded ?Confirmed semaglutide 0.25 mg or 0.5 mg (2 mg SUBCUT 07/17/23 mg/3 mL) subcutaneous pen injector (Ozempic) metoprolol tartrate 25 mg tablet 25 mg PO BID 10/20/23 10/20/23 Previous Rx's ?Medication ?Instructions ?Recorded CAM boot #1 ea 01/28/22 ASO to the Left #1 ea 04/15/22 fluticasone propionate 50 2 spray intranasal DAILY PRN 07/17/23 mcg/actuation nasal allergy symptoms #16 grams spray,suspension (Flonase Allergy Relief) lorazepam 0.5 mg tablet (Ativan) 0.5 mg PO DAILY PRN a nxiety #14 12/26/23 tabs ondansetron 8 mg disintegrating 8 mg PO Q6H #14 tabs 0 12/26/23 tablet amoxicillin 875 mg-potassium 1 tab PO BID 7 days #14 t abs 03/29/24 clavulanate 125 mg tablet cefdinir 300 mg capsule 300 mg PO BID 7 days #14 cap s 07/02/24 sucralfate 1 gram tablet (Carafate) 1 g PO BID #20 tab s 07/02/24 Allergies Allergy/AdvReac Type Severity Reaction Status Date / Time hydromorphone (From Dilaudid) AdvReac ADR-Abdominal Verified 07/02/24 18:05 Pain meperidine (From Demerol) AdvReac ADR-Abdominal Verified 07/02/24 18:05 Pain naproxen AdvReac ADR-Abdominal Verified 07/02/24 18:05 Pain Review of Systems 2 General: Reports: 10 or more systems reviewed and unremarkable except in HPI and below Const: Denies: fever(s), chills, change in appetite, change in weight or diaphoresis ENMT: Denies: throat pain or hoarseness Card: Denies: chest pain, palpitations or lightheadedness Resp: Reports: dyspnea; Denies: productive cough or wheezing GI: Reports: abdominal pain; Denies: nausea, vomiting, diarrhea, constipation, bloating, change in stool character or hematochezia : Denies: flank pain, difficulty voiding, dysuria, urinary frequency or urinary urgency Musc: Reports: back pain; Denies: neck pain Skin/Breast: Denies: rash or new lesions Neuro: Denies: headache(s) or dizziness PFSH ED 2 PFSH: Medical History Ulnar nerve injury Left elbow pain Family history of ischemic heart disease and other diseases of the circulatory system Hypertension Diabetes Anxiety GERD (gastroesophageal reflux disease) Family History Other CAD (coronary artery disease) Hyperlipidemia Hypertension Myocardial infarction Stroke Social History Smoking and tobacco/nicotine status: unknown if used tobacco/nicotine Alcohol intake: current Alcohol intake frequency: holidays/special occasions only Substance/Drug Use: never Physical Exam 2 Const: COMMON NORMALS: no acute distress, average body habitus, patient oriented x3, no limitations, healthy appearing, alert and well nourished G ENERAL APPEARANCE: cooperative and comfortable ORIENTATION/CONSCIOUSNESS: Yes awake HENMT: COMMON NORMALS: normocephalic, atraumatic, hearing grossly normal bilaterally, external ears normal, Normal external nose present, Normal nasal mucous membranes and turbinates present and moist oral mucous membranes HEAD & SCALP: normocephalic and atraumatic NOSE: Normal external nose present and Normal nasal mucous membranes and turbinates present EXTERNAL EAR: Yes external ears normal Eye: COMMON NORMALS: Equal, round and reactive pupils present, EOMs intact bilaterally, conjunctivae normal and normal visual jamison by confrontation C ONJUNCTIVA: Yes conjunctivae normal PUPIL: Yes Equal, round and reactive pupils present Neck/C-Spine: COMMON NORMALS: full ROM, supple, no meningeal signs and no JVD Resp: COMMON NORMALS: normal respiratory effort, No retractions, No use of accessory muscles and clear to auscultation bilaterally AUSCULTATION: clear to auscultation bilaterally, no crackles, no rales, no rhonchi and no wheezes Cardio: COMMON NORMALS: no JVD, regular rate, regular rhythm, S1 normal heart sound present, S2 normal heart sound present, No gallops present (Cardio), No clicks present (Cardio), No murmurs present (Cardio), No rub (Cardio) and Peripheral pulses 2+ throughout RATE: regular rate RHYTHM: regular rhythm HEART SOUNDS: S1 normal heart sound present and S2 normal heart sound present PERIPHERAL PULSES: Peripheral pulses 2+ throughout GI: COMMON NORMALS: Normal to inspection, nondistended, normoactive bowel sounds present, Soft to palpation, non-tender, No hepatosplenomegaly present and no masses AUSCULTATION: Yes normoactive bowel sounds PALPATION: Yes Soft to palpation, No Guarding due to palpation present (GI), No Rigid due to palpation and Yes No hepatosplenomegaly present RECTAL EXAM: deferred : COMMON NORMALS: Yes no CVA tenderness BLADDER/KIDNEY EXAM: Yes no CVA tenderness Back/Pelvis: COMMON NORMALS: no CVA tenderness Extremity: COMMON NORMALS: normal to inspection and full ROM Neuro: COMMON NORMALS: patient oriented x3, moves all extremities, no focal motor deficits and no sensory deficits noted SENSORIUM/ORIENTATION: Yes alert MENINGEAL SIGNS: Yes no meningeal signs Psych: COMMON NORMALS: mental status grossly normal, cooperative and speech normal SPEECH: Yes normal speech Skin: COMMON NORMALS: no rashes or lesions noted GENERAL SKIN EXAM: no rashes or lesions noted Course 2 Vital Signs: Vital signs: Vital Signs Temperature 97.9 F 07/02/24 18:02 Pulse Rate 104 H 07/02/24 18:52 Respiratory Rate 16 07/02/24 18:02 Blood Pressure 146/85 07/02/24 18:52 Pulse Oximetry 100 07/02/24 18:52 Oxygen Delivery Me thod Room Air 07/02/24 18:52 MDM - Abdominal Pain Medical Decision Making This patient presented with sudden onset epigastric pain that brought her in, it was much improved during time of examination lasted about 30 minutes. History of diabetes on semaglutide, no previous history of pancreatitis. On exam there was no reproducible tenderness to palpation, overall exam was unremarkable. Vitals have been stable. Very minimal elevation of her lipase with her lab work with mild bump in her LFTs, these have been elevated in the past. No history of alcoholism. Also evidence of a urinary tract infection with urinalysis. Rest of her labs normal, including normal white count. Chest x-ray is normal and EKG unremarkable. And abdomen and pelvis CT did not demonstrate any acute findings, specifically no findings of pancreatitis. She has remained without pain throughout the ED stay, I suspect gastritis as she does have a history of GERD. Cannot fully rule out that this is ulcer formation and thus we will have her follow-up with general surgery. Will start her on Carafate have her take [id number] Pepcid and for her UTI will treat with cefdinir. Here in the ED she was treated with Zofran for nausea as well as started on fluids. She has no other complaints at this time and she did verbalize understanding to return precautions that I gave her. GI cocktail will be given prior to discharge. Lab Data 07/02/24 18:15 07/02/24 18:15 Labs/Radiology: Radiology Impressions Chest X-Ray 07/02/24 18:15 IMPRESSION: No acute findings. Abdomen/Pelvis CT 07/02/24 19:11 IMPRESSION: 1. No acute findings in the abdomen/pelvis. 2. Suspected uterine fibroid. This could be further assessed with nonemergent pelvic ultrasound if warranted. 3. Hepatomegaly. Laboratory Results WBC 9.19 10^3/uL (3.29-11.43) 07/02/24 18:15 RBC 4.74 10^6/uL (3.85-5.65) 07/02/24 18:15 Hgb 13.40 g/dL (11.27-16.99) 07/02/24 18:15 Hct 41.1 % (36-47) 07/02/24 18:15 MCV 86.7 fl (85-98) 07/02/24 18:15 MCH 28.3 pg (27-33) 07/02/24 18:15 MCHC 32.6 g/dL (30-55) 07/02/24 18:15 RDW 13.2 % (12.1-15.1) 07/02/24 18:15 Plt Count 291 10^3/cmm (157-399) 07/02/24 18:15 MPV 10.8 fL (7.4-10.4) H 07/02/24 18:15 Neut % (Auto) 47.9 % 07/02/24 18:15 Lymph % (Auto) 41.8 % 07/02/24 18:15 [place] % (Auto) 7.7 % 07/02/24 18:15 Eos % (Auto) 1.7 % 07/02/24 18:15 Baso % (Auto) 0.7 % 07/02/24 18:15 Neut # (Auto) 4.40 10^3/uL (1.8-7.7) 07/02/24 18:15 Lymph # (Auto) 3.8 10^3/uL (0.8-4.8) 07/02/24 18:15 [place] # (Auto) 0.7 10^3/uL (0.2-0.9) 07/02/24 18:15 Eos # (Auto) 0.2 10^3/uL (0.0-0.8) 07/02/24 18:15 Baso # (Auto) 0.1 10^3/uL (0.0-0.1) 07/02/24 18:15 Nucleated RBC % (auto) 0 % 07/02/24 18:15 Nucleated RBCs # 0.0 /100WBC 07/02/24 18:15 Sodium 143 mmol/L (136-145) 07/02/24 18:15 Potassium 4.0 mmol/L (3.5-5.1) 07/02/24 18:15 Chloride 105 mmol/L (98-107) 07/02/24 18:15 Carbon Dioxide 24 mmol/L (22-29) 07/02/24 18:15 Anion Gap 18.0 (5-19) 07/02/24 18:15 BUN 15 mg/dL (6-20) 07/02/24 18:15 Creatinine 0.6 mg/dL (0.5-0.9) 07/02/24 18:15 GFR Calculation 113.8 mL/min (90-130) 07/02/24 18:15 Glucose 102 mg/dL (65-115) 07/02/24 18:15 Calculated Osmolality 297 mOsm/kg (285-295) H 07/02/24 18:15 Calcium 9.3 mg/dL (8.5-10.5) 07/02/24 18:15 Total Bilirubin 0.6 mg/dL (0.15-1.2) 07/02/24 18:15 AST 72 U/L (0-32) H 07/02/24 18:15 ALT 42 U/L (0-33) H 07/02/24 18:15 Alkaline Phosphatase 86 U/L (35-105) 07/02/24 18:15 Total Protein 7.4 g/dL (6.6-8.7) 07/02/24 18:15 Albumin 4.5 g/dL (3.5-5.2) 07/02/24 18:15 Globulin 2.9 g/dL (1.3-4.6) 07/02/24 18:15 Triglycerides 55 mg/dL (0-150) 07/02/24 18:15 Lipase 105 U/L (13-60) H 07/02/24 18:15 HCG, Qual Negative (Negative) 07/02/24 18:15 Urine Color Yellow (Yellow) 07/02/24 18:16 Urine Appearance Clear (CLEAR) 07/02/24 18:16 Urine pH 5 (5-7) 07/02/24 18:16 Ur Specific [place] 1.025 (1.005-1.030) 07/02/24 18:16 Urine Protein Neg (Negative) 07/02/24 18:16 Urine Glucose (UA) Norm (Normal) 07/02/24 18:16 Urine Ketones Negative (Negative) 07/02/24 18:16 Urine Blood 3+ (Negative) H 07/02/24 18:16 Urine Nitrate Negative (Negative) 07/02/24 18:16 Urine Bilirubin Neg (Negative) 07/02/24 18:16 Urine Urobilinogen Norm mg/dL (Negative) 07/02/24 18:16 Ur Leukocyte Esterase Negative (Negative) 07/02/24 18:16 Urine RBC 6-10 /hpf (0-2) 07/02/24 18:16 Urine WBC 11-20 /hpf (0-5) H 07/02/24 18:16 Ur Squamous Epith Cells 0-5 /hpf (0-5) 07/02/24 18:16 Amorphous Sediment Not Reportable 07/02/24 18:16 Urine Bacteria None seen /hpf (NONE) 07/02/24 18:16 Hyaline Casts 0-4 /lpf H 07/02/24 18:16 All radiology interpretation(s) finalized by discharge Discharge Plan Discharge Patient Disposition: Home Clinical Impression: Abdominal pain Qualifiers: Abdominal location: epigastric Qualified Code(s): R10.13 - Epigastric pain GERD (gastroesophageal reflux disease) Qualifiers: Esophagitis presence: esophagitis presence not specified Qualified Code(s): K 21.9 - Gastro-esophageal reflux disease without esophagitis Urinary tract infection Qualifiers: Urinary tract infection type: acute cystitis Hematuria presence: without hematuria Qualified Code(s): N30.00 - Acute cystitis without hematuria Condition: Stable Prescriptions: New sucralfate [Carafate] 1 gram tablet 1 g PO BID Qty: 20 0RF cefdinir 300 mg capsule 300 mg PO BID 7 Days Qty: 14 0RF No Action Ozempic 0.25 mg or 0.5 mg (2 mg/3 mL) pen injector SUBCUT fluticasone propionate [Flonase Allergy Relief] 50 mcg/actuation spray,suspension 2 spray intranasal DAILY PRN (Reason: allergy symptoms) Qty: 16 0RF Rx Instructions: administer into each nostril (DME) CAM boot See Rx Instructions .Route .MEDSUPPLY Qty: 1 0RF Rx Instructions: As directed (DME) ASO to the Left See Rx Instructions .Route .MEDSUPPLY Qty: 1 0RF Rx Instructions: As directed metoprolol tartrate 25 mg tablet 25 mg PO BID amoxicillin-pot clavulanate 875-125 mg tablet 1 tab PO BID 7 Days Qty: 14 0RF Ativan 0.5 mg tablet 0.5 mg PO DAILY PRN (Reason: anxiety) Qty: 14 0RF ondansetron 8 mg tablet,disintegrating 8 mg PO Q6H Qty: 14 0RF Rx Instructions: Take 1/2-1 tab every 6 hours as needed for nausea and vomiting Discharge Orders: Discharge ED (Routine); Ordered 07/02/24 Ordered By: Michael De La Torre Referrals: Safia Michele FNP [Primary Care Provider] - Patient Instructions: Urinary Tract Infection in Women (ED), Abdominal Pain (ED) Activity Restrictions/Additional Instructions: Carafate as prescribed. [id number] Pepcid as we discussed. Take the antibiotics for your urinary tract infection. Please follow-up with your regular doctor later this week for reevaluation. Return with any new or worsening. Follow-up with general surgery. Print Language: Bulgarian Coding Level of Care Code ED Decorating Consultant for Lico Whitley
[2024-07-02 18:23] LABS: Basophils # 0.1 10^3/uL (0.0-0.1); Basophils % 0.7 %; Eosinophils # 0.2 10^3/uL (0.0-0.8); Eosinophils % 1.7 %; Hematocrit 41.1 % (36-47); Lymphocytes # 3.8 10^3/uL (0.8-4.8); Lymphocytes % 41.8 %; Mean Corpuscular HGB Conc 32.6 g/dL (30-55); Mean Corpuscular Hemoglobin 28.3 pg (27-33); Mean Corpuscular Volume 86.7 fl (85-98); Mean Platelet Volume 10.8 fL (7.4-10.4); Monocytes # 0.7 10^3/uL (0.2-0.9); Monocytes % 7.7 %; Neutrophils % 47.9 %; Nucleated Red Blood Cells % 0 %; Platelet Count 291 10^3/cmm (157-399); Red Blood Count 4.74 10^6/uL (3.85-5.65); Red Cell Distribution Width 13.2 % (12.1-15.1); White Blood Count 9.19 10^3/uL (3.29-11.43)
[2024-07-02 18:41] LABS: HCG, Serum Qual Negative (Negative)
[2024-07-02 18:47] LABS: Alanine Aminotransferase 42 U/L (0-33); Albumin Level 4.5 g/dL (3.5-5.2); Alkaline Phosphatase 86 U/L (35-105); Aspartate Amino Transferase 72 U/L (0-32); Blood Urea Nitrogen 15 mg/dL (6-20); Calcium 9.3 mg/dL (8.5-10.5); Carbon Dioxide 24 mmol/L (22-29); Chloride 105 mmol/L (98-107); Globulin 2.9 g/dL (1.3-4.6); Glomerular Filtration Rate 113.8 mL/min (90-130); Glucose 102 mg/dL (65-115); Lipase 105 U/L (13-60); Osmolality Calculated 297 mOsm/kg (285-295); Sodium 143 mmol/L (136-145); Total Bilirubin 0.6 mg/dL (0.15-1.2); Total Protein 7.4 g/dL (6.6-8.7)
[2024-07-02 18:52] VITALS: BP 146/85; PULSE 104; O2SAT 100
[2024-07-02 18:55] LABS: Bacteria Urine None Seen /hpf; Hyaline Casts Urine 0-4 /lpf; Squamous Epithelial Cell Urine 0-5 /hpf (0-5)
--- NOTE | 2024-07-02 19:11 | CTR_ITS ---
PROCEDURE INFORMATION: Exam: CT Abdomen And Pelvis With Contrast Exam date and time: 07/02/2024 7:54 PM Age: 33 years old Clinical indication: Abdominal pain; Epigastric; Prior surgery; Surgery date: 6+ months; Surgery type: Gb, gastric bypass; Additional info: Severe epigastric pain into back, sob/mild lipase elevation TECHNIQUE: Imaging protocol: Computed tomography of the abdomen and pelvis with contrast. Radiation optimization: All CT scans at this facility use at least one of these dose optimization techniques: automated exposure control; mA and/or kV adjustment per patient size (includes targeted exams where dose is matched to clinical indication); or iterative reconstruction. Contrast material: OMNIPAQUE 350; Contrast volume: 100 ml; Contrast route: INTRAVENOUS (IV); COMPARISON: US pelv w/transvag [id number] 10/29/2022 3:23 PM RADIATION DOSE METRICS: Total DLP (mGy-cm): 523.33 FINDINGS: Liver: The liver is enlarged, measuring 19.1 cm craniocaudal. No suspicious liver lesion. Gallbladder and biliary ducts: Status post cholecystectomy. No biliary ductal dilatation. Pancreas: Normal. No ductal dilation. Spleen: Normal. No splenomegaly. Adrenal glands: Normal. No mass. Kidneys and ureters: Normal. No hydronephrosis. Stomach and bowel: Status post Stoney-en-Y gastric bypass. Appendix: No evidence of appendicitis. Intraperitoneal space: Unremarkable. No free air. No significant fluid collection. Vasculature: Unremarkable. No abdominal aortic aneurysm. Lymph nodes: Unremarkable. No enlarged lymph nodes. Urinary bladder: Unremarkable as visualized. Reproductive: Rounded mildly hypodense structure within the uterine fundus measures about 3.3 x 4.4 x 3.5 cm. No suspicious adnexal mass. Moderate stool in the colon and rectum. No evidence of bowel obstruction. Bones/joints: Unremarkable. No acute fracture. Soft tissues: Unremarkable. CT/CT abdomen pelvis w con* [id number] IMPRESSION: 1. No acute findings in the abdomen/pelvis. 2. Suspected uterine fibroid. This could be further assessed with nonemergent pelvic ultrasound if warranted. 3. Hepatomegaly.
[2024-07-02 19:17] LABS: Add Urine Culture? No; Add Urine Microscopic? YES; Bilirubin Urine Neg (Negative); Blood Urine 3+ (Negative); Glucose Urine UA Norm (Normal); Ketones Urine Negative (Negative); Leukocyte Esterase Urine Negative (Negative); Nitrate Urine Negative (Negative); Protein Urine Neg (Negative); Specific Gravity, Urine 1.025 (1.005-1.030); Urine Appearance Clear (CLEAR); Urine Color Yellow (Yellow); Urobilinogen Urine Norm (Negative); pH Urine 5 (5-7)
[2024-07-02 19:46] LABS: Triglycerides 55 mg/dL (0-150)
[2024-07-02] MEDS: sodium chloride 0.9% 1,000 ML 999 ML IV (19:46)
[2024-07-02] MEDS: ondansetron 2 mg/ML SDV 2 mL 4 MG IVP (19:46)
[2024-07-02] MEDS: iohexol 350 mg/mL 500 mL Btl (per mL) IV (19:57)
[2024-07-02 21:00] VITALS: PULSE 92; RESP 16; O2SAT 99
[2024-07-02] MEDS: lidocaine 2% viscous 15 ML, aluminum-mag hydrox-simethicon 30 ML, sucralfate oral liq 1 GM PO (21:06)
[2024-07-02 21:11] VITALS: BP 137/68; PULSE 105; O2SAT 98
--- NOTE | 2024-07-03 09:50 | DCPLANNER ---
Referral sent to General Surgery: This patient presented with sudden onset epigastric pain that brought her in, it was much improved during time of examination lasted about 30 minutes. I suspect gastritis as she does have a history of GERD. Cannot fully rule out that this is ulcer formation and thus we will have her follow-up with general surgery. Carafate as prescribed. [id number] Pepcid as we discussed. Take the antibiotics for your urinary tract infection. Please follow-up with your regular doctor later this week for reevaluation. Return with any new or worsening. Follow-up with general surgery.
== END 2024-07-02 21:12 | disposition home or self-care (01) ==
PROVIDERS: Emergency Medicine; Emergency Provider Physician Assistant; PCP Nurse Practitioner Family
DX: R10.13 Epigastric pain (principal); K21.9 Gastro-esophageal reflux disease without esophagitis; N30.00 Acute cystitis without hematuria; E11.9 Type 2 diabetes mellitus without complications; I10 Essential (primary) hypertension
CPT/HCPCS: 36415; 71045; 74177; 80053; 81001; 83690; 84478; 84703; 85025; 93005; 96361; 96374; 99285; J2405; J7030; J9999